=== PATIENT | male | born 1975 | race Two or more races ===

== ENCOUNTER 2017-03-18 18:21 | Emergency (ER) | payer OTHER ==
[~2017-03-18] VITALS: Ht 165.1 cm; Wt 65.8 kg
[2017-03-18 19:39] VITALS: BP 132/68
[2017-03-18] MEDS ORDERED: BACLOFEN 10 MG TAB PO ONE (20:30)
[2017-03-18] MEDS ORDERED: IBUPROFEN 600 MG TAB PO ONE (20:30)
== END 2017-03-18 21:00 | disposition home or self-care (01) ==
LOC: ER 18:21
DX: S46.812A Strain of other muscles, fascia and tendons at shoulder and upper arm level, left arm, initial encounter (principal); F17.210 Nicotine dependence, cigarettes, uncomplicated; V49.49XA Driver injured in collision with other motor vehicles in traffic accident, initial encounter; Y93.89 Activity, other specified; Y99.8 Other external cause status; Y92.410 Unspecified street and highway as the place of occurrence of the external cause
CPT/HCPCS: 70360

== ENCOUNTER 2017-10-21 16:07 | Emergency (ER) | payer OTHER ==
[~2017-10-21] VITALS: Ht 165.1 cm; Wt 61.2 kg
[2017-10-21 17:17] VITALS: BP 151/76
[2017-10-21] MEDS ORDERED: CLINDAMYCIN 600MG IV 50 ML IV ONE (17:30)
[2017-10-21] MEDS ORDERED: cefTRIAXone 1GM/10ml IVPUSH 10 ML IV ONE (17:30)
[2017-10-21] MEDS ORDERED: SODIUM CHLORIDE 0.9% 1,000 ML IV ONE (17:45)
[2017-10-21 18:03] LABS: Basophils # (auto) 0 uL; Basophils % (auto) 0.2 % (0.0-2.0); Eosinophils # (auto) 0.2 uL; Eosinophils % (auto) 2.3 % (0.0-7.0); Hematocrit 41.7 % (41.0-53.0); Hemoglobin 13.8 g/dL (13.5-17.5); Lymphocytes % (auto) 20.5 % (10.0-50.0); Mean Corpuscular Hemoglobin 29.3 pg (28.0-32.0); Mean Corpuscular Volume 88.6 fL (80.0-100.0); Monocytes # (auto) 1.2 uL; Monocytes % (auto) 11.8 % (0.0-12.0); Neutrophils # (auto) 6.5 uL; Neutrophils % (auto) 65.2 % (37.0-80.0); Platelet Count (auto) 288 10^3/uL (140-450); Red Blood Cells 4.71 10^6/uL (4.5-5.90); Red Cell Distribution Width 13.3 % (11.8-14.3); White Blood Cell 9.9 10^3/uL (4.4-10.8)
[2017-10-21 18:19] LABS: Albumin 3.6 g/dL (3.4-5.0); BUN/Creatinine Ratio 9.5; Bilirubin, Total 0.2 mg/dL (0.2-1.0); Uric Acid 3.3 mg/dL (3.5-7.2)
[2017-10-21] MEDS ORDERED: KETOROLAC TROMETH 30 MG/ML 1ML VIAL IV ONE (18:30)
== END 2017-10-21 18:43 | disposition home or self-care (01) ==
LOC: ER 16:07
DX: S90.561A Insect bite (nonvenomous), right ankle, initial encounter (principal); F17.210 Nicotine dependence, cigarettes, uncomplicated; W57.XXXA Bitten or stung by nonvenomous insect and other nonvenomous arthropods, initial encounter; Y93.89 Activity, other specified; Y92.89 Other specified places as the place of occurrence of the external cause; Y99.8 Other external cause status
CPT/HCPCS: 36415; 80053; 84550; 85025; 87040; 96365; 96375; 99284; J1885; J3490; J7030

== ENCOUNTER 2017-10-22 14:03 | Emergency (ER) | payer OTHER ==
[~2017-10-22] VITALS: Ht 165.1 cm; Wt 61.2 kg
[2017-10-22] MEDS ORDERED: CLINDAMYCIN 900MG IV 50 ML IV ONE (15:15)
[2017-10-22] MEDS ORDERED: cefTRIAXone 1GM/10ml IVPUSH 10 ML IV ONE (15:15)
[2017-10-22 15:55] VITALS: BP 118/72
[2017-10-22] MEDS ORDERED: KETOROLAC TROMETH 30 MG/ML 1ML VIAL IV ONE (16:00)
[2017-10-22] MEDS ORDERED: methylPREDNISolone SOD SUCC 125 MG/2 ML VL IV ONE (16:00)
[2017-10-22 16:46] LABS: Basophils # (auto) 0 uL; Basophils % (auto) 0.5 % (0.0-2.0); Eosinophils # (auto) 0.2 uL; Eosinophils % (auto) 3.1 % (0.0-7.0); Hematocrit 40.8 % (41.0-53.0); Hemoglobin 13.6 g/dL (13.5-17.5); Lymphocytes # (auto) 2.7 uL; Mean Corpuscular Hemoglobin 29.4 pg (28.0-32.0); Mean Corpuscular Hgb Conc. 33.3 g/dL (32.0-36.0); Mean Corpuscular Volume 88.5 fL (80.0-100.0); Monocytes # (auto) 0.9 uL; Monocytes % (auto) 11.4 % (0.0-12.0); Neutrophils # (auto) 4.1 uL; Nucleated Red Blood Cells % 0.1 %; Platelet Count (auto) 305 10^3/uL (140-450); Red Blood Cells 4.61 10^6/uL (4.5-5.90); Red Cell Distribution Width 13.6 % (11.8-14.3)
[2017-10-22 16:56] LABS: Alcohol, Urine < 3.0 mg/dL (0-5); Amphetamine Screen, Urine NEGATIVE (NEGATIVE); Barbiturate Scree,Urine NEGATIVE (NEGATIVE); Benzodiazephine Screen, Urine NEGATIVE (NEGATIVE); Cannabinoid Screen, Urine NEGATIVE (NEGATIVE); Cocaine Screen, Urine NEGATIVE (NEGATIVE); Opiate Scree,Urine POSITIVE (NEGATIVE); Phencyclidine Screen, Urine NEGATIVE (NEGATIVE)
[2017-10-22 17:00] LABS: Alanine Aminotransferase 32 U/L (16-61); Albumin 3.3 g/dL (3.4-5.0); Alkaline Phosphatase 89 U/L (45-117); Anion Gap 8 (5-15); Aspartate Aminotransferase 21 U/L (15-37); BUN/Creatinine Ratio 14.3; Bilirubin, Total 0.2 mg/dL (0.2-1.0); Blood Urea Nitrogen 11 mg/dL (7-18); Calcium 8.4 mg/dL (8.5-10.1); Carbon Dioxide 26 mmol/L (21-32); Chloride 106 mmol/L (98-107); GFR African American 143 mL/min; GFR Non-African American 118 mL/min; Glucose 82 mg/dL (74-106); Potassium 4.1 mmol/L (3.5-5.1); Sodium 140 mmol/L (136-145); Total Protein 7.7 g/dL (6.4-8.2)
== END 2017-10-22 18:14 | disposition home or self-care (01) ==
LOC: ER 14:03
DX: S90.561A Insect bite (nonvenomous), right ankle, initial encounter (principal); F17.210 Nicotine dependence, cigarettes, uncomplicated; W57.XXXA Bitten or stung by nonvenomous insect and other nonvenomous arthropods, initial encounter; Y93.89 Activity, other specified; Y99.8 Other external cause status; Y92.89 Other specified places as the place of occurrence of the external cause
CPT/HCPCS: 36415; 80053; 80307; 84484; 85025; 96365; 96366; 96375; 99285; J1885; J2930; J3490